=== PATIENT | female | born 1980 | race Caucasian/White ===

== ENCOUNTER 2020-06-05 10:57 | Emergency (ER) | payer OTHER, SELFPAY ==
--- NOTE | ~2020-06-05 | XR_ITS ---
XR tibia fibula RT 2V DATE: 06/05/2020 11:32 INDICATION: Follow up radiograph. Injury. Right lower extremity pain. TECHNIQUE: AP and lateral views COMPARISON: None FINDINGS: Alignment is preserved at the knee joint. There is mild posterolateral displacement at a linear oblique fracture of the lateral malleolus and l ateral dislocation at the tibiotalar joint. IMPRESSION: Lateral malleolar fracture and lateral dislocation at the tibiotalar joint Reviewed, dictated and finalized at location A. S SUPERVISOR IMPRESSION: Lateral malleolar fracture and lateral dislocation at the tibiotala r joint
--- NOTE | ~2020-06-05 | XR_ITS ---
XR ankle RT 2V DATE: 06/05/2020 13:02 INDICATION: Fall, ankle fracture/dislocation TECHNIQUE: 2 portable views COMPARISON: 06/05/2020 right ankle FINDINGS: There is a soft tissue wrap around the ankle. There is approximately 2 mm residual lateral and 5 mm posterior displacement at the lateral malleolar fracture and minimal residual lateral sublux ation at the tibiotalar joint. IMPRESSION: Minimal residual lateral subluxation of the tibiotalar joint 2 mm laterally and 5 mm posteriorly displaced lateral malleolar fracture Reviewed, dictated and finalized at location A. INE ADJUSTER
--- NOTE | ~2020-06-05 | XR_ITS ---
XR ankle RT min 3V DATE: 06/05/2020 11:32 INDICATION: Fall on slippery gravel. Right ankle pain, swelling TECHNIQUE: 3 views COMPARISON: None FINDINGS: There is a linear oblique fracture of the lateral malleolus, with approximately 5 mm latera l and 2 mm posterior displacement. There is lateral tibiotalar dislocation. 2. Surgical anchor devices of the lateral malleolus. Plantar calcaneal enthesopathy. IMPRESSION: Lateral malleolar fracture and lateral tibiotalar dislocation Reviewed, dictated and finalized at location A. SAW OPERATOR
[2020-06-05 10:48] VITALS: BP 122/65; PULSE 95; RESP 16; TEMP 36.7; O2SAT 100
--- NOTE | 2020-06-05 10:59 | ED.GENADULT ---
HPI - General Adult General Chief complaint: Extremity Injury, Lower Stated complaint: ankle injury Source: patient and EMS Mode of arrival: EMS Limitations: no limitations History of Present Illness HPI narrative: Patient a 39-year-old female who presents for EMS status post injuring the right ankle rolling the ankle has history of prior fracture noted deformity pain with any movement patient notes she has not had anything for pain denies other injuries or complaints on arrival appears uncomfortable but not in distress Related Data Home Medications Medication Instructions Recorded Confirmed No Home Medications 06/05/20 06/05/20 Allergies Allergy/AdvReac Type Severity Reaction Status Date / Time No Known Allergies Allergy Verified 06/05/20 10:55 Review of Systems Review of Systems: All systems reviewed & are unremarkable except as noted in HPI and below PMFSH Surgical History Surgical History History of orthopedic surgery Social History Social History Smoking status: Current every day smoker Exam Narrative: Exam Narrative: GENERAL: Well-appearing, well-nourished, uncomfortable and in no acute distress. HEAD: Normocephalic, atraumatic. EYES: PERRLA and EOMI. ENT: Nares clear, no rhinorrhea or epistaxis. Mucous membranes moist. CHEST: Clear to auscultation. No respiratory distress. No wheezes rales or rhonchi HEART: Regular rate and rhythm. No murmur heard. Normal peripheral pulses. ABDOMEN: Soft, nontender, nondistended. EXTREMITIES: Patient with swelling and tenderness of the right ankle joint SKIN: Warm, dry, no rash. NEURO: No focal deficits. Alert and oriented x3. Neurovascularly intact. Cap refill less than 2 seconds PSYCH: Normal mood and affect. Course Course Emergency Course: Patient in the room at this time had orthopedic splinting given pain medication. Patient will follow with orthopedic surgery was splinted x-rays reviewed and aware of recommendations and follow-up with orthopedic surgery will be discharged home provided with reasons to return hemodynamically stable ABCs intact and stable Consultations Consultation #1: Discussed case with Dr. Duran on-call for Dr. Klein who recommends the patient should follow with Dr. Klein and if Ernie is unable she can call his practice for follow-up Date: 06/05/20 Time: 13:36 Vital Signs Vital signs: Vital Signs Temperature 98.1 F 06/05/20 10:48 Pulse Rate 95 06/05/20 10:48 Respiratory Rate 16 06/05/20 10:48 Blood Pressure 122/65 06/05/20 10:48 Pulse Oximetry 100 06/05/20 10:48 Temperature 98.1 F 06/05/20 10:48 Pulse Rate 95 06/05/20 10:48 Respiratory Rate 16 06/05/20 10:48 Blood Pressure 122/65 06/05/20 10:48 Pulse Oximetry 100 06/05/20 10:48 Procedures Orthopedic Fracture Reduction Fracture #1: Fracture Reduction date: 06/05/20 Fracture Reduction time: 12:54 Time Out Performed: Yes Side: right Fracture Reduction Location: tibia and fibula Analgesia: other (IV narcotic) Pre-Procedure Neuro Vascular Exam: normal Technique: direct manipulation Post Reduction X-rays Demonstrate: acceptable reduction Post-reduction neuro exam: intact Post-reduction vascular exam: intact Splint Applied: Yes Patient Tolerated Procedure: well Orthopedic Splinting/Casting Injury #1: Splinting/Casting Date: 06/05/20 Splinting/Casting Time: 12:55 Side: right Lower Extremity Injury Location: ankle Lower Extremity Immobilizer: posterior splint and stirrup splint Splint: prefabricated OCL: stirrup Pre-Procedure Neuro Vascular Exam: normal Post-Procedure Neuro Vascular Exam: normal Other Orthopedic Equipment: crutches Additional Comments: Patient tolerate
[2020-06-05] MEDS: SODIUM CHLORIDE 0.9% IV 1,000 ML 999 ML IV CONT (11:05)
[2020-06-05] MEDS: ONDANSETRON INJ 4 MG/2 ML VIAL IV PUSH (11:07)
[2020-06-05] MEDS: MORPHINE SULFATE (*CRX) 4 MG/ML INJ IV PUSH (11:08)
[2020-06-05] MEDS: HYDROmorphone HCL INJ (*CRX) 1 MG/ML SYR IV PUSH ×2 (12:29→12:41)
[2020-06-05 14:05] VITALS: BP 115/76; PULSE 78; RESP 18; O2SAT 99
== END 2020-06-05 14:07 | disposition home or self-care (01) ==
PROVIDERS: Emergency Provider Emergency Medicine; PCP Nurse Practitioner Family
DX: S82.61XA Displaced fracture of lateral malleolus of right fibula, initial encounter for closed fracture (principal); F17.200 Nicotine dependence, unspecified, uncomplicated; X50.1XXA Overexertion from prolonged static or awkward postures, initial encounter
CPT/HCPCS: 27788; 27818; 73590; 73600; 73610; 96374; 96375; 99285; J1170; J2270; J2405; J7030

== ENCOUNTER 2020-06-10 02:00 | Outpatient (CLI) | payer OTHER, SELFPAY ==
[2020-06-10 23:37] LABS: SARS-CoV-2 RNA PCR Positive
== END 2020-06-10 02:01 | disposition home or self-care (01) ==
LOC: ANHCOVIDDT 02:01
PROVIDERS: PCP Nurse Practitioner Family; Visit Provider Orthopaedic Surgery
DX: U07.1 COVID-19 (principal)
CPT/HCPCS: 87635; C9803; U0003

== ENCOUNTER 2020-06-17 00:34 | Outpatient (CLI) | payer OTHER, SELFPAY ==
[2020-06-17 23:32] LABS: SARS-CoV-2 RNA PCR Positive
== END 2020-06-17 00:35 | disposition home or self-care (01) ==
LOC: ANHCOVIDDT 00:34
PROVIDERS: PCP Nurse Practitioner Family; Visit Provider Orthopaedic Surgery
DX: U07.1 COVID-19 (principal)
CPT/HCPCS: 87635; C9803; U0003

== ENCOUNTER 2020-06-20 01:44 | Day surgery (SDC) | payer OTHER, SELFPAY ==
[2020-06-11 09:34] VITALS: BMI 29.9
--- NOTE | 2020-06-19 13:09 | WPDANESEPPF ---
Anes - Initial Pre Proc Eval Procedure: Operation Date: 06/20/20 14:30 Proposed Procedures p Open Reduction Internal Fixation Of Right Ankle - Mihai Klein MD Date/Time: 06/19/20 13:09 Surgeon: Mihai Klein MD Pre Op Diagnosis: Lateral Malleolus Fracture Right Ankle Patient Data Age: 39 Gender: F Height: 1.68 m Weight: 83.99 kg Allergies Allergy/AdvReac Type Severity Reaction Status Date / Time codeine Allergy Intermediate Vomiting Verified 06/20/20 12:49 Home Medications Medication Instructions Recorded Confirmed Type hydrocodone-acetaminophen 1 tablet PO Q6H PRN #20 tablet 06/05/20 06/11/20 Rx oxycodone-acetaminophen 5 mg-325 1 - 2 tablet PO Q4-6H PRN #40 06/18/20 Rx mg tablet tablet Patient hx anesthesia problems: none Family hx anesthesia problems: none PMFSH Past Medical History Medical History Ankle fracture, lateral malleolus, closed COVID-19 Overweight (BMI 25.0-29.9) Smoker Surgical History Surgical History History of orthopedic surgery Social History Social History Smoking packs per day: 1 Smoking cigarettes per day: 20.0 Years smoked: 20 Smoking pack-years: 20.00 Smoking status: Current every day smoker Tobacco type: cigarettes Living arrangements: with family Spiritual care concerns: No Anes - Eval Final PreProcedure Day of Procedure 06/19/20 13:09 Patient weight: obese Heart: regular rate and rhythm Lungs: clear to auscultation and normal air movement Airway: Mallampati scale class II Neurological: alert and oriented Last oral intake: >/= 8 hours ASA classification: III Emergent: no Anesthetic plan: proceed Anesthesia type and monitoring: general LMA Informed Consent: The patient's anesthetic plan and its attendant risks and benefits were discussed with the patient/family/POA. Questions were solicited and answers provided to the satisfaction of the patient/family/POA.
--- NOTE | ~2020-06-20 | XR_ITS ---
EXAMINATION: XR surgery orthopedic INDICATION: Open reduction and internal fixation of the right ankle TECHNIQUE: Four intraoperative fluoroscopic images are submitted for review. Total fluoroscopic time is 37.5 seconds. COMPARISON: 06/05/2020 FINDINGS: Fluoroscopic images demonstrate plate and screw fixation of a previously identified oblique distal fibular fracture. Old suture anchors are noted in the lateral malleolus. Alignment is anatomi c. Please refer to procedure note for full details. IMPRESSION: 1. Open reduction and internal fixation of the right ankle. Please refer to procedure note for full d etails. Reviewed, dictated and finalized at location A. E CLERK IMPRESSION: 1. Open reduction and internal fixation of the right ankle. Please refer to pro cedure note for full details.
--- NOTE | 2020-06-20 08:25 | SUR.PREOP ---
ekg waived per dr wynn day of surgery.
--- NOTE | 2020-06-20 12:23 | WPDHPUPDATE1 ---
History and Physical Update Update Date/Time: 06/20/20 12:23 History and Physical has been reviewed, including an updated exam of the patient. There are NO changes in the patient's condition. Risks, benefits, and alternatives have been discussed and questions answered. Patient agrees to proceed with procedure.
--- NOTE | 2020-06-20 14:55 | SUR.PREOP ---
patient and friend aware of delay start time understanding stated.
[2020-06-20] MEDS: ACETAMINOPHEN 500 MG TABLET 1000 MG PO (15:20)
[2020-06-20 15:45] VITALS: BP 136/88; PULSE 58; RESP 14; TEMP 36.4; O2SAT 98
[2020-06-20] MEDS: KETOROLAC 15 MG/ML VIAL (*BKC) IV PUSH (15:45)
[2020-06-20] MEDS: LACTATED RINGERS 1,000 ML 30 ML IV CONT ×2 (15:45→17:47)
[2020-06-20] MEDS: ceFAZolin 2 GM/D5W 50 ML 2 GM/50 ML BAG IVPB (15:49)
[2020-06-20] MEDS: BUPIVACAINE HCL 0.5% PF 30 ML VIAL 20 ML INFILTRATE (17:14)
[2020-06-20 17:39] VITALS: BP 134/72; PULSE 82; RESP 16; O2SAT 100
--- NOTE | 2020-06-20 17:44 | PM.PROC ---
Procedure Note - Detailed Date of procedure: 06/20/20 Pre-op diagnosis: Lateral Malleolus Fracture Right Ankle Post-op diagnosis: same Procedure performed: ORIF lateral malleolus ankle fracture. Description of procedure: The fracture was partially healing. Callus was removed and the fracture brought to length. Bone quality was good. The distal screw was angled away from the previous bone anchors. A lag screw was placed with excellent purchase. Implants: Synthes 1/3 tubular plate. Anesthesia: GETA Surgeon: Mihai Klein MD Shingle Shearing Machine Operator: Purnima Velasquez PA-C Estimated blood loss (mL): 20 Drains: No Complications: None Condition: stable Disposition: PACU Findings: Physician senior executive assistant required for surgery; including patient positioning, draping, tissue retraction, maintaining fracture reduction, wound closure, and short leg splint application. A general anesthetic was administered. The limb was prepped and draped in the usual sterile fashion with a well-padded tourniquet high on the thigh. A bump was placed under the hip. The limb was exsanguinated and the tourniquet inflated to 275 millimeters of mercury during the procedure. A longitudinal incision was created at the distal fibula. Careful dissection was carried down to bone. Perineal nerve branches were protected. The fracture was carefully exposed. Callus and debris was irrigated from the wound. The fracture was brought out to length. Reduction was accomplished with the reduction forceps. The fixation plate was contoured. Fixation was performed with a combination of cortical and cancellous screws. Fluoroscopy was used throughout the procedure to confirm anatomic reduction and appropriate placement of the implants. The tourniquet was released. Meticulous hemostasis was obtained. Wound was closed in layers with 2-0 Vicryl suture 3-0 Monocryl suture and amish. A sterile splint with padding was applied. The patient was extubated and recovered in the OR due to recent COVID positive history. There were no complications.
[2020-06-20] MEDS: fentaNYL CITRATE INJ (*CRX) 100 MCG/2 ML VIAL 25 MCG IV PUSH ×3 (17:48→18:09)
[2020-06-20 17:50] VITALS: BP 137/63; PULSE 53; RESP 14; O2SAT 100
[2020-06-20 18:05] VITALS: BP 129/71; PULSE 55; RESP 12; O2SAT 95
[2020-06-20 18:16] VITALS: BP 130/61; PULSE 55; RESP 16; O2SAT 95
[2020-06-20 18:35] VITALS: BP 129/63; PULSE 54; RESP 16; O2SAT 97
--- NOTE | 2020-06-20 19:35 | SUR.PHASEII ---
[id number] WITH PT IN WHEELCHAIR AT FRONT ENTRANCE FOR FRIEND TO ARRIVE. PT EATING CHEESE CURLS, TALKING/TEXTING ON PHONE, REQUESTING TO WHEEL SELF IN TO PARKING LOT TO SMOKE-REQUEST DENIED. NO C/O DISCOMFORT VOICED. 1919-ASSISTED INTO FRIEND'S VEHICLE WITHOUT COMPLAINTS.
== END 2020-06-20 19:20 | disposition home or self-care (01) ==
PROVIDERS: PCP Nurse Practitioner Family; Visit Provider Orthopaedic Surgery
PROC: (CPT 27792; principal; 2020-06-20 14:30)
DX: S82.61XA Displaced fracture of lateral malleolus of right fibula, initial encounter for closed fracture (principal); F17.210 Nicotine dependence, cigarettes, uncomplicated; E66.9 Obesity, unspecified; Z68.29 Body mass index [BMI] 29.0-29.9, adult; W01.0XXA Fall on same level from slipping, tripping and stumbling without subsequent striking against object, initial encounter
CPT/HCPCS: 27792; A9270; C1713; J0690; J1100; J1885; J2250; J2405; J2704; J3010; J7120

== ENCOUNTER 2021-04-18 15:11 | Emergency (ER) | payer OTHER, SELFPAY ==
[2021-04-18 15:19] VITALS: BP 137/103; PULSE 93; RESP 16; TEMP 37; O2SAT 99
--- NOTE | 2021-04-18 16:35 | ED.GENADULT ---
HPI - General Adult General Chief complaint: Abdominal Pain Stated complaint: abd pain/blood in stool Source: patient Mode of arrival: ambulatory Limitations: no limitations History of Present Illness HPI narrative: Patient is a 40-year-old female who presents to the urgent care via POV for evaluation of chronic constipation that has worsened over the past 3 days. Additionally, she reports straining, dry, hard stool, painful bowel movements and bleeding with bowel movements. She states she had 1 bright red bloody stool which has since resolved. No relief with OTC stool softeners. Nothing improves or worsen symptoms. She denies having a current PCP and has never been evaluated by a trade embalmer for this problem. Related Data Allergies Allergy/AdvReac Type Severity Reaction Status Date / Time codeine Allergy Intermediate Vomiting Verified 04/18/21 15:53 KETOROLAC TROMETHAMINE AdvReac Mild VOMITING Uncoded 04/18/21 15:53 Review of Systems Review of Systems: Denies past abdominal medical history. Pertinent negatives fever, chills, sweats, malaise, poor p.o. intake, change in appetite, recent weight loss, lymphadenopathy, headache, sore throat, dizziness, LOC, urinary sxs, back/flank pain, extremity paresthesias, black, sticky stools, mucus in stool, jaundice, abdominal pain, nausea, vomiting, diarrhea, constipation, belching, bloating, dry mouth, heartburn PMFSH Past Medical History Medical History Ankle fracture, lateral malleolus, closed Chronic constipation COVID-19 Overweight (BMI 25.0-29.9) Smoker Surgical History Surgical History History of orthopedic surgery Family History Family History Mother Family history of suicide Patient's mother is Father Patient's father is in good health Social History Social History Smoking packs per day: 1 Smoking cigarettes per day: 20.0 Years smoked: 20 Smoking pack-years: 20.00 Smoking status: Current every day smoker Tobacco type: cigarettes Alcohol intake: current Spiritual care concerns: No Exam Narrative: GENERAL: Well-appearing, well-nourished, and in no acute distress. HEAD: Normocephalic, atraumatic. No sinus tenderness or facial swelling appreciated. EYES: PERRLA and EOMI. No evidence of erythema, swelling, or drainage. ENT: Mucous membranes moist and pink. Uvula is midline without erythema and swelling. No evidence of petechial rash, cobblestoning, lesions, ulcers, erythema, swelling, exudates, peritonsillar abscess, tenting, or drooling. Breath odor and voice normal. NECK: Supple. No Lymphadenopathy or nuchal rigidity appreciated. CHEST: Bilateral lung boyce are clear to auscultation. No respiratory distress. No evidence of cough or pleuritic cp upon examination. HEART: Regular rate and rhythm. No murmur, gallop, or rub heard. ABDOMEN: Soft, nontender, nondistended, normal active bowel sounds in all quadrants. No guarding. No rebound tenderness. No pulsatile or palpable abdominal mass(es). No CVAT. : Not examined. Patient refused. Witnessed by RN. EXTREMITIES: Normal range of motion. No edema. SKIN: Warm, dry, no rash. Excellent skin turgor. NEURO: No focal deficits. Alert and oriented x3. SPECIAL OBSERVATIONS: Course Vital Signs Vital signs: Vital Signs Temperature 98.6 F 04/18/21 15:19 Pulse Rate 93 04/18/21 15:19 Respiratory Rate 16 04/18/21 15:19 Blood Pressure 137/103 H 04/18/21 15:19 Pulse Oximetry 99 04/18/21 15:19 Temperature 98.6 F 04/18/21 15:19 Pulse Rate 93 04/18/21 15:19 Respiratory Rate 16 04/18/21 15:19 Blood Pressure 137/103 H 04/18/21 15:19 Pulse Oximetry 99 04/18/21 15:19 Due to an elevated blood pressure, I had a detailed discussion with the patient and/or guardian regard
== END 2021-04-18 16:40 | disposition home or self-care (01) ==
PROVIDERS: Emergency Provider Nurse Practitioner Family
DX: K59.00 Constipation, unspecified (principal); F17.210 Nicotine dependence, cigarettes, uncomplicated; Z86.16 Personal history of COVID-19
CPT/HCPCS: 99213; G0463

== ENCOUNTER 2021-09-15 18:52 | Emergency (ER) | payer OTHER, SELFPAY ==
[2021-09-15 19:00] VITALS: BP 146/105; PULSE 102; RESP 16; TEMP 36.9; O2SAT 99
--- NOTE | 2021-09-15 19:07 | ED.NAVMDI ---
HPI - Nausea/Vomiting/Diarrhea General Chief complaint: Nausea/Vomiting/Diarrhea Stated complaint: no appetite/nausea Time Seen by Provider: 09/15/21 19:08 Source: patient Mode of arrival: ambulatory Limitations: no limitations History of Present Illness HPI Narrative: 40 yo F presents requesting covid test. Reports that she lives her 80 yo grandma and has been having N/V, feeling lightheaded, dizzy for several days. States if she has covid and has to leave her grandma's she has no where to live. Pt is tearful. States she has been really stressed. is homeless and living between hotels and family members houses but no one really wants her around. also needs work note. All systems reviewed and negative except as noted above. Related Data Allergies Allergy/AdvReac Type Severity Reaction Status Date / Time codeine Allergy Intermediate Vomiting Verified 09/15/21 19:23 KETOROLAC TROMETHAMINE AdvReac Mild VOMITING Uncoded 04/18/21 15:53 Review of Systems Review of Systems: CONSTITUTIONAL: Denies fever, chills, or sweats. EYES: Denies visual changes, redness, or discharge. ENT: Denies rhinorrhea, congestion, sore throat, or otalgia. CARDIOVASCULAR: Denies chest pain, palpitations, or edema. RESPIRATORY: Denies cough or dyspnea. GASTROINTESTINAL: Denies abdominal pain. Reports nausea, vomiting, or diarrhea. GENITOURINARY: Denies dysuria or hematuria. SKIN: Denies rash or itching. MUSCULOSKELETAL: Denies back pain, joint pain, or myalgia. NEUROLOGIC: Reports headache, intermittent dizziness. Denies numbness, or weakness. PSYCHIATRIC: Denies anxiety or depression. All other systems reviewed are negative, except as documented in HPI. [facility] Past Medical History Medical History Ankle fracture, lateral malleolus, closed Chronic constipation COVID-19 Overweight (BMI 25.0-29.9) Smoker Surgical History Surgical History History of orthopedic surgery Family History Family History Mother Family history of suicide Patient's mother is Father Patient's father is in good health Social History Social History Smoking packs per day: 1 Smoking cigarettes per day: 20.0 Years smoked: 20 Smoking pack-years: 20.00 Smoking status: Current every day smoker Tobacco type: cigarettes Alcohol intake: current Spiritual care concerns: No Comments At time of signature, agree with nursing past medical, surgical, social and family history. There is no relevant family history pertinent to the presenting complaint. Exam Narrative: GENERAL: This is a well-nourished, well-developed patient, in no apparent distress. HEAD: normocephalic, atraumatic. EYES: PERRL. Sclera clear/white. Vision is grossly intact. EARS: External ears normal, auditory canals clear and without drainage, TMs normal without perforation. Hearing grossly intact. NOSE: External nose normal with no obvious nasal discharge, nares without redness, no rhinorrhea. THROAT: Mucous membranes moist, posterior pharynx clear. NECK: Neck supple, non-tender without lymphadenopathy, masses or thyromegaly. CARDIOVASCULAR: Regular rate and rhythm without murmurs, gallops, or rubs. RESPIRATORY: Clear to auscultation. Breath sounds equal bilaterally. No wheezes, rales, or rhonchi. GASTROINTESTINAL: Abdomen soft, non-tender, nondistended. Bowel sounds are active. No hepato-splenomegaly, or palpable masses. No guarding. SKIN: warm, Dry, intact with no suspicious lesions or rash, good texture and turgor. NEURO: awake, alert, and oriented to person, place and time. There were no obvious focal neurologic abnormalities. EXTREMITIES: No joint tenderness, effusion, or edema noted. No calf tenderness. Negative Homans sign bilaterally. BACK: Nontender without deformity. No CVA tenderness. Course Cour
== END 2021-09-15 19:50 | disposition home or self-care (01) ==
PROVIDERS: Emergency Provider Nurse Practitioner Family
DX: F43.9 Reaction to severe stress, unspecified (principal); R42 Dizziness and giddiness; Z20.822 Contact with and (suspected) exposure to COVID-19; F17.210 Nicotine dependence, cigarettes, uncomplicated; Z86.16 Personal history of COVID-19
CPT/HCPCS: 87426; 99213; C9803; G0463